=== PATIENT | male | born 1995 | race Caucasian/White ===

== ENCOUNTER 2022-08-02 08:49 | Emergency (ER) | payer SELFPAY ==
[~2022-08-02] VITALS: Ht 180.3 cm; Wt 65.8 kg
[2022-08-02 09:01] VITALS: BP 121/71
[2022-08-02] MEDS ORDERED: KETOROLAC 15 MG/ML VIAL IM ONE (09:25)
[2022-08-02] MEDS ORDERED: ACETAMINOPHEN EXTRA STRENGTH 500 MG TAB PO ONE (09:25)
[2022-08-02] MEDS ORDERED: METOCLOPRAMIDE 10 MG TAB PO ONE (09:30)
--- NOTE | 2022-08-02 09:30 | NUR ---
27YO MALE PT C/O MIGRAINE X5DAYS. DENIES RELIEF AFTER TYLENOL, N/V/D, DIZZINESS , CHEST PAIN OR SOB. PT AAOX4, NO VISIBLE DISTRESS. HX:DENIES NKA
--- NOTE | 2022-08-02 09:52 | NUR ---
The patient's care was reviewed and supervised by WILDER BACH RN.
--- NOTE | 2022-08-02 10:16 | NUR ---
pt brought back via w/c
[2022-08-02] MEDS ORDERED: IBUP-2213 PO (10:40)
[2022-08-02] MEDS ORDERED: ACET-10509 PO (10:41)
[2022-08-02 10:48] VITALS: BP 118/71
--- NOTE | 2022-08-02 11:26 | NUR ---
Patient discharged with v/s stable. Written and verbal after care instructions FOR GENERAL HEADACHE W/O CAUSE given and explained. Patient alert, oriented and verbalized understanding of instructions. Ambulatory with steady gait. All questions addressed prior to discharge. ID band removed. Patient advised to follow up with PMD. Rx of TYLENOL AND IBUPROFEN given. Opportunity to ask questions provided and answered.
== END 2022-08-02 11:26 | disposition home or self-care (01) ==
LOC: MED 08:49
DX: R51.9 Headache, unspecified (principal)
CPT/HCPCS: 70450; 99284; J8597; Q0163; J1885